=== PATIENT | male | born 1990 | race Caucasian/White ===

== ENCOUNTER → 2017-01-19 | Outpatient (REF) | payer OTHER | LOC: M LAB REF 09:14 | PROVIDERS: ATTEND Physician Assistant Medical | DX: Z20.2 Contact with and (suspected) exposure to infections with a predominantly sexual mode of transmission (principal) ==

== ENCOUNTER 2017-02-07 17:39 | Emergency (ER) | payer BC, OTHER ==
[~2017-02-07] VITALS: Ht 177.8 cm; Wt 65.8 kg
[2017-02-07] MEDS ORDERED: ADDE15CA3 PO (17:57)
[2017-02-07 19:24] LABS: BASO # 0.1 K/mm3 (0.0-0.2); BASO % 0.4 % (0.0-1.0); EOS # 0.1 K/mm3 (0.0-0.50); LARGE UNSTAINED CELL # 0.1 K/mm3 (0.0-0.4); LARGE UNSTAINED CELL % 0.7 % (0.0-4.0); LYMPH # 1.3 K/mm3 (1.5-6.5); LYMPH % 8.6 % (24.0-44.0); MEAN CORPUSCULAR HGB CONC 33.5 g/dl (32.0-36.5); MEAN CORPUSCULAR VOLUME 92.5 fl (80.0-96.0); MONO # 0.8 K/mm3 (0.0-0.8); MONO % 5.4 % (0.0-5.0); NEUTROPHILS # 11.7 K/mm3 (1.8-7.7); NEUTROPHILS % 83.8 % (36.0-66.0); PLATELET COUNT, AUTOMATED 247 k/mm3 (150-450); RED CELL DISTRIBUTION WIDTH 12.2 % (11.5-14.5); WHITE BLOOD COUNT 13.9 K/mm3 (4.0-10.0)
[2017-02-07 19:39] LABS: ERYTHROCYTE SEDIMENTATION RATE 3 mm/hr (0-15)
[2017-02-07 19:59] LABS: ALBUMIN 4.1 GM/DL (3.2-5.2); ALBUMIN/GLOBULIN RATIO 1.14 (1.00-1.93); ALKALINE PHOSPHATASE 86 U/L (45-117); ALT/SGPT 20 U/L (12-78); ANION GAP 5 MEQ/L (8-16); AST/SGOT 15 U/L (15-37); BILIRUBIN,DIRECT 0.2 MG/DL (0.0-0.2); BILIRUBIN,TOTAL 0.5 MG/DL (0.2-1.0); BLOOD UREA NITROGEN 12 MG/DL (7-18); CALCIUM LEVEL 9.1 MG/DL (8.5-10.1); CARBON DIOXIDE LEVEL 29 MEQ/L (21-32); CHLORIDE LEVEL 101 MEQ/L (98-107); CREATININE FOR GFR 0.99 MG/DL (0.70-1.30); GLOMERULAR FILTRATION RATE > 60.0 (>60); GLUCOSE, FASTING 137 MG/DL (70-105); POTASSIUM SERUM 3.8 MEQ/L (3.5-5.1); SODIUM LEVEL 135 MEQ/L (136-145); TOTAL PROTEIN 7.7 GM/DL (6.4-8.2)
[2017-02-07 20:30] VITALS: BP 140/87
[2017-02-10 00:15] LABS: Lyme Disease IgG/IgM Antibodie <0.91 ISR (0.00-0.90); Lyme Disease IgM Ab Quantitati <0.80 index (0.00-0.79)
== END 2017-02-07 20:54 | disposition home or self-care (01) ==
LOC: M ED 17:39
DX: D69.2 Other nonthrombocytopenic purpura (principal); L95.9 Vasculitis limited to the skin, unspecified; J45.909 Unspecified asthma, uncomplicated; F90.9 Attention-deficit hyperactivity disorder, unspecified type; Z79.899 Other long term (current) drug therapy

== ENCOUNTER 2017-02-13 08:35 | Inpatient (IN) | payer BC ==
[~2017-02-13] VITALS: Ht 182.9 cm; Wt 66.4 kg
[~2017-02-13 08:35] MED LIST: ADDE15CA3 PO
[2017-02-13] MEDS ORDERED: NS 1,000 ML IV SCH (09:30)
[2017-02-13 10:04] LABS: BASO % 0.2 % (0.0-1.0); EOS # 0.1 K/mm3 (0.0-0.50); EOS % 1.7 % (0.0-3.0); LARGE UNSTAINED CELL # 0.1 K/mm3 (0.0-0.4); LARGE UNSTAINED CELL % 1.2 % (0.0-4.0); LYMPH # 1.3 K/mm3 (1.5-6.5); MEAN CORPUSCULAR HEMOGLOBIN 31.8 pg (27.0-33.0); MEAN CORPUSCULAR HGB CONC 34.8 g/dl (32.0-36.5); MEAN CORPUSCULAR VOLUME 91.3 fl (80.0-96.0); MONO # 0.5 K/mm3 (0.0-0.8); MONO % 6.3 % (0.0-5.0); NEUTROPHILS % 75.6 % (36.0-66.0); PLATELET COUNT, AUTOMATED 226 k/mm3 (150-450); RED CELL DISTRIBUTION WIDTH 12.2 % (11.5-14.5)
--- NOTE | 2017-02-13 10:32 | REP ---
ABDOMEN, FLAT UPRIGHT PA CHEST, THREE VIEWS: HISTORY: Abdominal pain. Air is present in small and large intestine. There are no air fluid levels or dilated loops of intestine. There is no pneumoperitoneum. The lungs are clear. IMPRESSION: Nonspecific bowel gas pattern. Signed by Ramu Méndez MD 02/13/2017 10:37 A
--- NOTE | 2017-02-13 10:33 | REP ---
RIGHT WRIST, FOUR VIEWS: HISTORY: Pain. There is no acute fracture or dislocation. The joint spaces are normal in appearance. IMPRESSION: There is no acute fracture or dislocation. Signed by Ramu Méndez MD 02/13/2017 10:36 A
[2017-02-13 10:34] LABS: ERYTHROCYTE SEDIMENTATION RATE 8 mm/hr (0-15)
[2017-02-13 10:35] LABS: ALBUMIN 3.5 GM/DL (3.2-5.2); ALBUMIN/GLOBULIN RATIO 0.83 (1.00-1.93); ALKALINE PHOSPHATASE 58 U/L (45-117); ALT/SGPT 46 U/L (12-78); ANION GAP 6 MEQ/L (8-16); AST/SGOT 26 U/L (15-37); BILIRUBIN,DIRECT 0.2 MG/DL (0.0-0.2); BILIRUBIN,TOTAL 0.7 MG/DL (0.2-1.0); BLOOD UREA NITROGEN 3 MG/DL (7-18); CALCIUM LEVEL 8.8 MG/DL (8.5-10.1); CARBON DIOXIDE LEVEL 30 MEQ/L (21-32); CHLORIDE LEVEL 103 MEQ/L (98-107); CREATININE FOR GFR 0.83 MG/DL (0.70-1.30); GLOMERULAR FILTRATION RATE > 60.0 (>60); GLUCOSE, FASTING 100 MG/DL (70-105); POTASSIUM SERUM 3.8 MEQ/L (3.5-5.1); SODIUM LEVEL 139 MEQ/L (136-145); TOTAL PROTEIN 7.7 GM/DL (6.4-8.2)
[2017-02-13] MEDS ORDERED: GASTROGRAFIN SOLUTION 30ML PO ONE (11:05)
[2017-02-13] MEDS ORDERED: GASTROGRAFIN SOLUTION 30ML (Q9963) PO ONE (11:35)
[2017-02-13] MEDS ORDERED: ISOVUE-370 76% 100ML VIAL (Q9967) As Ordered ONE (12:14)
--- NOTE | 2017-02-13 13:32 | REP ---
CT abdomen and pelvis with IV contrast: With oral contrast. History: Left lower quadrant pain. Diarrhea. Vasculitis with purpura. CT contrast dose: 100 ml of Isovue [address] findings: Preliminary digital street worker radiographs are unremarkable. The lung bases are clear. There is no evidence of pleural effusion or upper abdominal ascites. The liver and the spleen are normal in size, homogeneous in texture. The gallbladder and pancreas are unremarkable. No adrenal lesion is seen on either side. The kidneys enhance symmetrically and are morphologically intact. Normal caliber aorta is seen. No evidence of arterial aneurysm or thrombosis. There are scattered multiple normal-sized small bowel mesenteric lymph nodes. No adenopathy seen. The descending and transverse segments of the duodenum are somewhat dilated filled with oral contrast. There is mural thickening surrounding the first portions of the duodenum and to a lesser extent there is mild dilation and mural thickening and fold thickening in the jejunal loops just beyond the ligament of Treitz. The more distal small bowel loops are normal in caliber and morphology. No significant obstruction is seen. The large bowel loops are unremarkable. Oral contrast is seen opacifying the right colon at the time of CT scanning. There is a tiny sliver of fluid in the pelvic reflections. Urinary bladder is intact. A normal appendix is seen over the iliac vessels. Bone window settings demonstrate bilateral L5 spondylolysis without significant spondylolisthesis. Some Schmorl's nodes are noted L4 and L3 due to early degenerative disc changes. No bony destructive lesion. No abdominal wall defect seen. Impression: 1. Mild dilation of the duodenum and one or two loops of proximal jejunum with mural thickening. No evidence of significant obstruction or obstructive lesion. 2. Multiple normal-sized small bowel mesenteric lymph nodes. 3. Bilateral L5 spondylolysis without spondylolisthesis. Otherwise negative. Signed by Chaitanya Gong MD 02/13/2017 03:50 P
[2017-02-13] MEDS ORDERED: MORPHINE 4 MG/ML 1ML SYRINGE IV ONE (14:45)
[2017-02-13] MEDS ORDERED: ONDANSETRON 4MG/2ML VIAL (J2405) IV ONE (14:45)
[2017-02-13] MEDS ORDERED: ACET50TAOT PO (18:37)
[2017-02-13] MEDS ORDERED: ALEV220T26 PO (18:37)
[2017-02-13] MEDS: NS 1,000 ML IV SCH (19:11)
[2017-02-13] MEDS ORDERED: BISACODYL 10 MG SUPP PR PRN (19:15)
[2017-02-13] MEDS: MORPHINE 2 MG/ML 1ML SYRINGE IV PRN (19:26)
[2017-02-13 20:32] VITALS: BP 144/94
[2017-02-13] MEDS: KETOROLAC 30 MG/ML VIAL (J1885) IV PRN (20:49)
[2017-02-13] MEDS: ACETAMINOPHEN TAB 650MG DOSE (2X325MG) PO PRN (20:49)
[2017-02-13] MEDS: PANTOPRAZOLE 40MG INJ (PROTONIX) (C9113) IV SCH (20:50)
[2017-02-13 20:52] LABS: INR 1.05
--- NOTE | 2017-02-13 22:01 | HPE ---
DATE OF ADMISSION: 02/13/2017 PRIMARY CARE PROVIDER: Nicanor Welsh MD CHIEF COMPLAINT: Purpuric rash, fatigue. HISTORY OF PRESENT ILLNESS: Mr. Greene is a 26-year-old male with no past medical history, who presented to the emergency room (ER) due to experiencing extensive purpuric rash in his lower extremities as well as mild area of upper extremities bilaterally. Patient expressed that his symptoms started on 02/07/2017. When he woke up in the morning, he noticed that he had swelling of his ankles bilaterally as well as right knee, right wrist, and right elbow. Patient went to work and when he came back, his noticed that he had purpuric rash in his lower extremities. Patient came to the ER. At the ER, it was noticed that patient had leukocytosis (white blood cells 16.9). Also, they ordered serology for Lyme disease IgM and IgG which was less than 0.91 and Lyme IgM quantitative was less than 0.8. Patient was discharged home with diagnosis of Henoch-Schonlein purpura (HSP) and was asked to followup with the primary care physician. The next day he noticed that the swelling of his ankles decreased however his left wrist and elbow start swelling. Patient had lab work for trichomoniasis and gonorrhea which were negative on 2016. On Monday, patient was seen by his primary care physician who ordered some tests which were scheduled for Monday, however due to increasing of his symptoms, including his rash, patient came to the ER. Patient also expressed that he developed diarrhea yesterday. He denies hematochezia however he had bowel movement every hour. Patient also denies hematuria or pain with urination. Patient expressed that he has noticed that purpuric rash has increased from his lower extremities up to his buttocks as well as posterior elbows bilaterally. However, patient denies noticing rashes on his chest and back. Also, patient expressed that several days before this symptoms start, patient noticed mild conjunctivitis on his left eye. Patient continue to have swelling of his joints especially wrists, elbows, ankles and knees randomly. ALLERGIES: No known allergies. PAST MEDICAL HISTORY: ADD PAST SURGICAL HISTORY: None. HOME MEDICATION: Acetaminophen 500 mg by mouth when necessary pain Adderall Xr 15 mg 1 By mouth twice a day Aleve 220 mg by mouth when necessary pain SOCIAL HISTORY: Patient lives with his and his daughter. 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 Patient denies illicit drug use. Patient smokes electronic (E) cigarettes and he expressed that he smokes a lot for the past 2 years. Patient has not traveled outside of the [place]. Patient has one dog. FAMILY HISTORY: Patient has one sister who is healthy. Patient's father had a stent at age 57, he is a smoker, and also drinks alcoholic beverages. Patient's mother is healthy. REVIEW OF SYSTEMS: GENERAL: Patient denies chills, night sweats. Patient also denies fever, however patient felt warm. Patient denies weight loss or weight gain. HEENT: Patient denies acute vision or hearing changes. Patient denies lightheadedness or problem with chewing food, however patient has lost his appetite. NECK: Patient denies lumps, bumps, or decreased range of motion of his neck. HEART: Patient denies palpitations, racing or skipping heartbeat or chest pain. ABDOMEN: Patient denies abdominal pain, nausea, or vomiting, however patient has diarrhea for the past 2 days. Patient denies hematochezia or melena. NEUROLOGIC: Patient denies history of transient ischemic attack (TIA), seizure or seizure-type activities. PHYSICAL EXAMINATION: VITAL SIGNS: Temperature 98.1, pulse 92, respiratory rate 18, blood pressure 136/88, pulse oximetry 100%, oxygen delivery method room air. GENERAL APPEARANCE: Patient was lying in bed, in no acute distress. Patient was awake, alert, and oriented to time, place, and person. HEENT: Normocephalic, atraumatic. Pupils are equal and reactive to light. Oral mucous is moist. NECK: Soft, supple. No lymphadenopathy. No thyromegaly. No jugular venous distention (JVD). HEART: Regular rate and rhythm, normal S1, S2. ABDOMEN: Soft, nontender. Positive bowel sounds in all quadrants. LUNGS: Clear breath sounds bilaterally, good air movement. EXTREMITIES: No lower extremity edema. +2 pulses in both lower extremities. Patient has edema in his left wrist as well as swelling of the finger. Patient has difficulty closing his hand and his left fingers to make a fist. However, patient has normal sensation in both upper and lower extremities. NEUROLOGIC: Cranial nerves II-XII were intact. No focal deficiencies. SKIN: Patient has purpuric rash in lower extremities bilaterally and his buttocks as well as posterior elbow bilaterally. The rashes are not tender to palpation and nonblanching. No tenderness was appreciated with palpation of the rash area. LABORATORY DATA: White blood cells 8, red blood cells 4.71, hemoglobin 15, hematocrit 43.1, MCV 91.3, MCH 31.8, MCHC 34.8, RDW 12.2, platelet count 226, neutrophil percentage 75.6, lymphocyte percentage 15, monocyte percentage 6.3, eosinophil percentage 1.7, basophil percentage 0.2, leukocyte percentage 1.2. PT 13.8, INR 1.05. Sodium 139, potassium 3.8, chloride 103, carbon dioxide 30, anion gap 6, BUN 3, creatinine 0.83, glomerular filtration rate more than 60, fasting glucose 100, lactic acid 1.3, calcium 8.8, total bilirubin 0.7, direct bilirubin 0.2, AST 26, ALT 46, alkaline phosphatase 58, C-reactive protein 2.0, total protein 7.7, albumin 3.5. Urine color straw, urine appearance clear, urine pH 7, urine specific gravity 1.001, urine protein negative, urine glucose negative, urine ketones negative, urine nitrite negative, urine urobilinogen 0.2, urine bilirubin negative, urine leukocyte esterase negative, urine white blood cells 0, urine red blood cells 1, urine hyaline casts 0, urine bacteria 1+, urine squamous epithelial cells 0. KEL screen pending. Total component pending. Hepatitis A IgM antibody pending. Hepatitis B surface (S) antigen pending. Hepatitis B core IgM antibody pending. Hepatitis C antibody index pending. Gonorrhea DNA pending. Trichomoniasis DNA pending. Blood culture is pending. Gastrointestinal (GI) panel was negative. IMAGING STUDIES: CT abdomen and pelvis with IV oral contrast which indicated mild dilation of the duodenum and one or two loops of proximal jejunum with mural thickening. No evidence of significant obstruction or obstructive lesions. Multiple normal sized small bowel mesenteric lymph nodes bilaterally. L5 spondylosis without spondylolisthesis. Otherwise, normal study. Abdomen flat/upright posteroanterior (PA) chest: Nonspecific bowel gas pattern. Right wrist, complete, which shows no acute fracture or dislocation. ASSESSMENT AND PLAN: 1. Purpuric rash with swelling of joints. This could be Henoch-Schonlein purpura (HSP) however due to other possibilities of infection versus inflammatory we have ordered lab works including: antinuclear antibody (KEL) as well as total component, hepatitis panel and repeated trichomoniasis and gonorrhea, however result is pending at this time. Also, we have gotten consent for ordering HIV which has been ordered and the result is pending. Gastrointestinal (GI) panel was negative. Blood culture is pending. At this point, we have not started on antibiotic treatment or prednisone due to unknown etiology. We may require to consult Dr. Blanchard, infectious disease. 2. Deep venous thrombosis (DVT) prophylaxis. At this point, we have not started patient on anticoagulation due to skin presentation. Also, due to lower extremity purpuric rash we have not started thromboembolism deterrents (TEDs) and sequentials. Patient is young and able to ambulate. 3. Joint pain/abdominal pain. His diarrhea has decreased. Imaging was negative for new pathology and gastrointestinal (GI) panel was negative. Patient is on morphine 2 mg IV every 2 hours as needed for severe pain as well as ketorolac 15 mg IV every 8 hours as needed for severe pain. My preceptor for this patient encounter was Dr. Francisca Cordero. The preceptor was physically present in the building during the encounter and was fully available. As needed, all aspects of the patient interview, examination, medical decision making process, and medical care plan development were reviewed and approved by the preceptor. The preceptor is aware and concurs with the plan as stated in the body of this note and will attest to such by his/her cosignature. SENIA
[2017-02-13 23:09] VITALS: BP 124/79
[2017-02-14] MEDS: ONDANSETRON 4MG/2ML VIAL (J2405) IV PRN ×3 (02:17→19:54)
[2017-02-14] MEDS: MORPHINE 2 MG/ML 1ML SYRINGE IV PRN ×3 (02:40→19:54)
[2017-02-14] MEDS: KETOROLAC 30 MG/ML VIAL (J1885) IV PRN ×3 (05:49→23:50)
[2017-02-14 07:55] LABS: MEAN CORPUSCULAR HEMOGLOBIN 32.3 pg (27.0-33.0); MEAN CORPUSCULAR HGB CONC 35.1 g/dl (32.0-36.5); MEAN CORPUSCULAR VOLUME 92.1 fl (80.0-96.0); WHITE BLOOD COUNT 5.9 K/mm3 (4.0-10.0)
[2017-02-14 08:00] VITALS: BP 130/82
[2017-02-14] MEDS: NS 1,000 ML IV SCH ×2 (08:09→21:00)
[2017-02-14 08:20] LABS: ANION GAP 5 MEQ/L (8-16); BLOOD UREA NITROGEN 4 MG/DL (7-18); CALCIUM LEVEL 8.5 MG/DL (8.5-10.1); CARBON DIOXIDE LEVEL 30 MEQ/L (21-32); CHLORIDE LEVEL 107 MEQ/L (98-107); CREATININE FOR GFR 0.81 MG/DL (0.70-1.30); GLOMERULAR FILTRATION RATE > 60.0 (>60); GLUCOSE, FASTING 107 MG/DL (70-105); POTASSIUM SERUM 3.7 MEQ/L (3.5-5.1); SODIUM LEVEL 142 MEQ/L (136-145)
[2017-02-14] MEDS: ACETAMINOPHEN TAB 650MG DOSE (2X325MG) PO PRN ×2 (10:19→21:16)
--- NOTE | 2017-02-14 11:19 | IPNPDOC ---
Subjective Date Seen The patient was seen on 02/14/17. Subjective Chief Complaint/HPI The patient is a 26-year-old male admitted with a reason for visit of Pain In Joints; Purpura. VS, I&O, 24H, Fishbone Vital Signs/I&O Vital Signs Date Time Temp Pulse Resp B/P (MAP) Pulse Ox O2 Delivery O2 Flow Rate FiO2 02/14/17 08:00 98.8 94 20 130/82 (98) 100 Room Air I&O- Last 24 Hours up to 6 AM 02/14/17 06:00 Intake Total 1200 ml Output Total 850 ml Balance 350 ml Laboratory Data 24H LABS Laboratory Tests 2 02/13/17 20:07: Prothrombin Time 13.8, Prothromb Time International Ratio 1.05 02/14/17 07:28: Anion Gap 5L, Glomerular Filtration Rate > 60.0, Blood Urea Nitrogen 4L, Creatinine 0.81, Sodium Level 142, Potassium Level 3.7, Chloride Level 107, Carbon Dioxide Level 30, Calcium Level 8.5 CBC/BMP Laboratory Tests 02/14/17 07:28 Red Blood Count 4.10 L, Mean Corpuscular Volume 92.1, Mean Corpuscular Hemoglobin 32.3, Mean Corpuscular Hemoglobin Concent 35.1, Red Cell Distribution Width 12.0, Calcium Level 8.5 Microbiology Microbiology 02/13/17 Blood Culture - Preliminary, Resulted No growth after 24 hours . All specim... 02/13/17 Blood Culture - Preliminary, Resulted No growth after 24 hours . All specim... 02/13/17 Gastrointestinal Tract Panel (PCR) - Final, Complete SUNNY KAPADIA DO Feb 14, 2017 11:19
--- NOTE | 2017-02-14 11:49 | IPNPDOC ---
Subjective Date Seen The patient was seen on 02/14/17. Subjective Chief Complaint/HPI The patient is a 26-year-old male admitted with a reason for visit of Pain In Joints; Purpura. General: Reports: Fatigue, Denies: Chills, Night Sweats Constitutional: Denies: Chills, Fever, Malaise Eyes: Denies: Vision change, Conjunctivae inflammation ENT: Denies: Head Aches Skin: Reports: Rash (generalized purpura,non-blanching mostly on LE and bottom) Pulmonary: Denies: Dyspnea, Cough Cardiovascular: Denies: Chest Pain, Palpitations, Orthopnea Gastrointestinal: Denies: Nausea, Vomiting Genitourinary: Denies: Dysuria Musculoskeletal: Reports: Joint Pain (b/l wrist, right knee, b/l ankle) Neurological: Denies: Weakness, Numbness Psych: Reports: Mood Normal Objective Physical Examination General Exam: Positive: Alert, Cooperative, No Acute Distress Eye Exam: Positive: Conjunctiva & lids normal, EOMI ENT Exam: Positive: Atraumatic, Mucous membr. moist/pink, Pharynx Normal Neck Exam: Positive: Supple Chest Exam: Positive: Clear to auscultation, Normal air movement, Negative: Rales, Rhonchi, Wheezing, Diminished Heart Exam: Positive: Rate Normal, Normal S1, Normal S2 Abdomen Exam: Positive: Normal bowel sounds, Soft, Negative: Tenderness, Hepatospenomegaly Extremity Exam: Positive: Normal pulses, Tenderness (mild abdominal tenderness , pain in left wrist ), Negative: Clubbing, Cyanosis, Edema Neuro Exam: Positive: Normal Gait Assessment /Plan Problems (1) Polyarthropathy Status: Acute Response to Treatment: Stable Problem Text: on exam, pt still complaining of sore left wrist and ankles will continue pain control w/ ketorolac have sent for multiple immunological markers, to include cryoglobulins, C3,C4, anti-CCP, RF, DS-DNA, ANCA, KEL, thinking most likely 2/2 HSP however definitive dx. must be obtained through skin bx w/ superficial dermal vessel inclusion. - will speak to front desk attendant surgeon about accomplishing this Otherwise, wide differential still includes: polyarteritis nodosa, granulomatosis with polyangitis, cryoglobulinemia, RF vasculitis, HSP, SLE vasculitis, Lyme diseas Hep B,C, HIV pending, chlamydia and gonorrhea neg First set of blood cx neg., suspect less likely for infectious etiology GI panel neg. will await results of aforementioned tests (2) Vasculitis Status: Acute Response to Treatment: Stable Problem Text: please see above (3) Pain in joints Status: Acute Response to Treatment: Stable Problem Text: pain control w/ketorolac please see above for further plan (4) Purpura Status: Acute Response to Treatment: Stable Problem Text: please see above Plan/VTE VTE Prophylaxis Ordered?: Yes VS, I&O, 24H, Fishbone Vital Signs/I&O Vital Signs Date Time Temp Pulse Resp B/P (MAP) Pulse Ox O2 Delivery O2 Flow Rate FiO2 02/14/17 11:34 16 02/14/17 08:00 98.8 94 130/82 (98) 100 Room Air I&O- Last 24 Hours up to 6 AM 02/14/17 06:00 Intake Total 1200 ml Output Total 850 ml Balance 350 ml Laboratory Data 24H LABS Laboratory Tests 2 02/13/17 20:07: Prothrombin Time 13.8, Prothromb Time International Ratio 1.05 02/14/17 07:28: Anion Gap 5L, Glomerular Filtration Rate > 60.0, Blood Urea Nitrogen 4L, Creatinine 0.81, Sodium Level 142, Potassium Level 3.7, Chloride Level 107, Carbon Dioxide Level 30, Calcium Level 8.5 CBC/BMP Laboratory Tests 02/14/17 07:28 Red Blood Count 4.10 L, Mean Corpuscular Volume 92.1, Mean Corpuscular Hemoglobin 32.3, Mean Corpuscular Hemoglobin Concent 35.1, Red Cell Distribution Width 12.0, Calcium Level 8.5 Microbiology Microbiology 02/13/17 Blood Culture - Preliminary, Resulted No growth after 24 hours . All specim... 02/13/17 Blood Culture - Preliminary, Resulted No growth after 24 hours . All specim... 02/13/17 Gastrointestinal Tract Panel (PCR) - Final, Complete GME ATTESTATION GME ATTESTATION My preceptor for this patient encounter was physically present in the building during the encounter and was fully available. As needed, all aspects of the patient interview, examination, medical decision making process, and medical care plan development were reviewed and approved by the preceptor. Preceptor is aware and concurs with the plan as stated in the body of this note and will attest to such by his/her cosignature. SUNNY KAPADIA DO Feb 14, 2017 11:48
[2017-02-14 15:02] LABS: COMPLEMENT C3 121 MG/DL (90-180); COMPLEMENT C4 22.6 MG/DL (10-40)
[2017-02-14 16:00] VITALS: BP 136/75
[2017-02-14] MEDS ORDERED: LIDOCAINE W/EPINEPHRINE 1% 20ML VIAL SC SCH (16:45)
[2017-02-14] MEDS ORDERED: NEOSPORIN TOP OINT 15GM TOP ONE (17:00)
[2017-02-14] MEDS: PANTOPRAZOLE 40MG INJ (PROTONIX) (C9113) IV SCH (19:54)
[2017-02-14 20:00] VITALS: BP 128/84
[2017-02-15] VITALS: BP 136/82
[2017-02-15 00:07] LABS: COMPLEMENT TOTAL (CH50) 60 U/mL (42-60)
[2017-02-15] MEDS: ONDANSETRON 4MG/2ML VIAL (J2405) IV PRN ×2 (06:57→17:24)
[2017-02-15] MEDS: MORPHINE 2 MG/ML 1ML SYRINGE IV PRN (06:57)
[2017-02-15 07:19] LABS: MEAN CORPUSCULAR HEMOGLOBIN 31.3 pg (27.0-33.0); MEAN CORPUSCULAR HGB CONC 34.3 g/dl (32.0-36.5); MEAN CORPUSCULAR VOLUME 91.3 fl (80.0-96.0); RED CELL DISTRIBUTION WIDTH 12.1 % (11.5-14.5); WHITE BLOOD COUNT 6.9 K/mm3 (4.0-10.0)
[2017-02-15 07:33] LABS: ANION GAP 6 MEQ/L (8-16); BLOOD UREA NITROGEN 5 MG/DL (7-18); CALCIUM LEVEL 8.7 MG/DL (8.5-10.1); CARBON DIOXIDE LEVEL 27 MEQ/L (21-32); CHLORIDE LEVEL 106 MEQ/L (98-107); CREATININE FOR GFR 0.67 MG/DL (0.70-1.30); GLOMERULAR FILTRATION RATE > 60.0 (>60); GLUCOSE, FASTING 105 MG/DL (70-105); POTASSIUM SERUM 3.6 MEQ/L (3.5-5.1); SODIUM LEVEL 139 MEQ/L (136-145)
[2017-02-15 08:00] VITALS: BP 132/92
[2017-02-15] MEDS: NS 1,000 ML IV SCH (08:45)
--- NOTE | 2017-02-15 09:14 | IPNPDOC ---
Subjective Date Seen The patient was seen on 02/15/17. Subjective Chief Complaint/HPI The patient is a 26-year-old male admitted with a reason for visit of Pain In Joints; Purpura. General: Denies: Chills, Night Sweats Constitutional: Reports: Malaise, Denies: Chills, Fever, Night Sweats Eyes: Denies: Pain, Vision change, Conjunctivae inflammation ENT: Denies: Head Aches Skin: Reports: Rash (generalized purpuric, non blanchable), Denies: Lesions, Jaundice Pulmonary: Denies: Dyspnea, Cough Cardiovascular: Denies: Chest Pain, Palpitations Gastrointestinal: Reports: Nausea, Abdominal Pain (genealized, seems worse from one day prior), Diarrhea, Denies: Vomiting, Constipation Genitourinary: Denies: Dysuria Musculoskeletal: Denies: Neck Pain Neurological: Denies: Weakness Psych: Reports: Mood Normal Objective Physical Examination General Exam: Positive: Alert, Cooperative, No Acute Distress Eye Exam: Positive: Conjunctiva & lids normal, EOMI ENT Exam: Positive: Atraumatic, Mucous membr. moist/pink, Pharynx Normal Neck Exam: Positive: Supple Chest Exam: Positive: Clear to auscultation, Normal air movement, Negative: Rales, Rhonchi, Wheezing, Diminished Heart Exam: Positive: Rate Normal, Normal S1, Normal S2 Abdomen Exam: Positive: Normal bowel sounds, Soft, Tenderness (generalized), Negative: Hepatospenomegaly Extremity Exam: Positive: Normal pulses, Tenderness (mild abdominal tenderness) , Negative: Clubbing, Cyanosis, Edema Neuro Exam: Positive: Normal Gait Assessment /Plan Assessment Pt seemed in more abdominal pain today, and also more fatigued. Problems (1) Polyarthropathy Status: Acute Response to Treatment: Stable Problem Text: on exam, pt still complaining of some residual soreness in left wrist he is s/p punch bx. one day ago for further evaluation for HSP will continue pain control w/ ketorolac have sent for multiple immunological markers, to include cryoglobulins, C3,C4, anti-CCP, RF, DS-DNA, ANCA, KEL, thinking most likely 2/2 HSP however definitive dx. must be obtained through skin bx w/ superficial dermal vessel inclusion. - will speak to regional medical director surgeon about accomplishing this Otherwise, wide differential still includes: polyarteritis nodosa, granulomatosis with polyangitis, cryoglobulinemia, RF vasculitis, HSP, SLE vasculitis, Lyme diseas Hep B,C, HIV pending, chlamydia and gonorrhea neg First set of blood cx neg., suspect less likely for infectious etiology GI panel neg. will await initiation of steroids until HSP results from bx. are back, standard of care for HSP is symptomatic tx., as such we will manage his pain appropriately will await results of aforementioned tests (2) Purpura Status: Acute Response to Treatment: Stable Problem Text: please see above (3) Vasculitis Status: Acute Response to Treatment: Stable Problem Text: please see above (4) Pain in joints Status: Acute Response to Treatment: Stable Problem Text: pain control w/ketorolac please see above for further plan (5) Abdominal pain Status: Acute Response to Treatment: Stable Problem Text: Pt. still complains of diffuse, achy pain. Had episode of loose stool over night with no blood or mucus. CT ab/pelvis 02-13-17 shows: Impression: 1. Mild dilation of the duodenum and one or two loops of proximal jejunum with mural thickening. No evidence of significant obstruction or obstructive lesion. 2. Multiple normal-sized small bowel mesenteric lymph nodes. 3. Bilateral L5 spondylolysis without spondylolisthesis. Otherwise negative. Will continue to treat pain, also will put on liquid diet GI panel neg. for infectious etiology Plan/VTE VTE Prophylaxis Ordered?: Yes VS, I&O, 24H, Fishbone Vital Signs/I&O Vital Signs Date Time Temp Pulse Resp B/P (MAP) Pulse Ox O2 Delivery O2 Flow Rate FiO2 02/15/17 07:07 16 02/15/17 00:00 99.3 80 136/82 (100) 98 Room Air I&O- Last 24 Hours up to 6 AM 02/15/17 06:00 Intake Total 4140 ml Output Total 4650 ml Balance -510 ml Laboratory Data 24H LABS Laboratory Tests 2 02/14/17 14:15: Serum Cryoglobulins NEGATIVE, Complement C3 121, Complement C4 22.6 02/15/17 06:56: Anion Gap 6L, Glomerular Filtration Rate > 60.0, Blood Urea Nitrogen 5L, Creatinine 0.67L, Sodium Level 139, Potassium Level 3.6, Chloride Level 106, Carbon Dioxide Level 27, Calcium Level 8.7 CBC/BMP Laboratory Tests 02/15/17 06:56 Red Blood Count 4.04 L, Mean Corpuscular Volume 91.3, Mean Corpuscular Hemoglobin 31.3, Mean Corpuscular Hemoglobin Concent 34.3, Red Cell Distribution Width 12.1, Calcium Level 8.7 Microbiology Microbiology 02/13/17 Blood Culture - Preliminary, Resulted No growth after 24 hours . All specim... 02/13/17 Blood Culture - Preliminary, Resulted No growth after 24 hours . All specim... 02/13/17 Gastrointestinal Tract Panel (PCR) - Final, Complete GME ATTESTATION GME ATTESTATION My preceptor for this patient encounter was physically present in the building during the encounter and was fully available. As needed, all aspects of the patient interview, examination, medical decision making process, and medical care plan development were reviewed and approved by the preceptor. Preceptor is aware and concurs with the plan as stated in the body of this note and will attest to such by his/her cosignature. SUNNY KAPADIA DO Feb 15, 2017 09:14
[2017-02-15] MEDS: ACETAMINOPHEN TAB 650MG DOSE (2X325MG) PO PRN (10:30)
[2017-02-15] MEDS: KETOROLAC 30 MG/ML VIAL (J1885) IV PRN ×2 (10:48→18:45)
[2017-02-15 16:00] VITALS: BP 132/77
--- NOTE | 2017-02-15 16:30 | DS.PDOC ---
Discharge Summary General Date of Admission Feb 13, 2017 at 19:11 Date of Discharge 02-15-17 Discharge Summary PROCEDURES PERFORMED DURING STAY: 3 mm punch biopsy right gluteal fold, x2 ADMITTING DIAGNOSES: 1. Purpuric rash with swelling of joints 2. Joint pain 3. Abdominal pain and diarrhea DISCHARGE DIAGNOSES: 1.Abdominal pain 2. Diarrhea 3. Diffuse, genealized purpuric rash COMPLICATIONS/CHIEF COMPLAINT: Pain In Joints; Purpura. HISTORY OF PRESENT ILLNESS: 26-year-old male with no past medical history presented to the emergency room (ER) due to experiencing extensive purpuric rash in his lower extremities as well as mild area of upper extremities bilaterally, associated with joint pain and diarrhea with abdominal pain. HOSPITAL COURSE: During the course of the stay, the patients abdominal pain was attempted to be controlled with ketorolac and morphine, his GI panel was neagtive for any infectious etiology. The pt. underwent punch biopsy of his right gluteal fold for two skin samples for diagnosis of HSP. Serology was sent for have sent for multiple immunological markers which included cryoglobulins, C3,C4, anti-CCP, RF, DS-DNA , ANCA, KEL. It was held that pt most likely was presenting with HSP however definitive dx.had to be obtained through skin bx w/ superficial dermal vessel inclusion, on day of transfer/d/c the pathology results were still pending. Ddx being investigated included polyarteritis nodosa, granulomatosis with polyangitis, cryoglobulinemia, RF vasculitis, HSP, SLE vasculitis, Lyme disease. Of note, Hep B,C were negative & HIV was pending, chlamydia and gonorrhea were also negative, First set of blood cultures were also negative. DISCHARGE MEDICATIONS: Please see below. ALLERGIES: Please see below. PHYSICAL EXAMINATION ON DISCHARGE: VITAL SIGNS: Please see below. GENERAL: On day of transfer, pt was seen and examined, seemed very tired and was in a lot of abdominal pain, complained of continued loose stool w/no blood or mucus . HEENT: EOMI, neck supple, nares patent b/l, trachea midline, moist mucus membranes CARDIOVASCULAR EXAMINATION: NSR, no murmurs or gallops appreciated, normal S1 and S2. RESPIRATORY EXAMINATION: CTA b/l, no wheezing, rhonchi or rales appreciated, good air expansinon b/l ABDOMINAL EXAMINATION: generalized tenderness, non-distended, nabsx4, no rebound ridgity or guarding appreciated, no organomegaly EXTREMITIES: no edema or cyanosis appreciated SKIN: multiple, whole body genealized non blanching purpura NEUROLOGICAL EXAMINATION: no focal deficits PSYCHIATRIC EXAMINATION: normal affect and mood LABORATORY DATA: Please see below. IMAGING: Wrist x-ray 02-13-17 IMPRESSION: There is no acute fracture or dislocation. Ab x-ray 02-13-17 IMPRESSION: Nonspecific bowel gas pattern. Ab/pelvis CT 02-13-17 Impression: 1. Mild dilation of the duodenum and one or two loops of proximal jejunum with mural thickening. No evidence of significant obstruction or obstructive lesion. 2. Multiple normal-sized small bowel mesenteric lymph nodes. 3. Bilateral L5 spondylolysis without spondylolisthesis. Otherwise negative. PROGNOSIS: Stable ACTIVITY: As tolerated DIET: Soft due to continued diarrhea DISCHARGE PLAN: Transfer to [facility] for higher level of care and workup DISPOSITION: Stable to transfer to [facility] INSTRUCTIONS: ITEMS TO FOLLOWUP ON ON OUTPATIENT: 1.Transfer to higher care facility DISCHARGE CONDITION: Stable TIME SPENT ON DISCHARGE: Greater than 20 minutes. Vital Signs/I&Os Vital Signs Date Time Temp Pulse Resp B/P (MAP) Pulse Ox O2 Delivery O2 Flow Rate FiO2 02/15/17 10:20 98.9 02/15/17 08:00 72 18 132/92 (105) 99 Room Air I&O- Last 24 Hours up to 6 AM 02/15/17 06:00 Intake Total 4140 ml Output Total 4650 ml Balance -510 ml Laboratory Data Labs 24H Laboratory Tests 2 02/15/17 06:56: Anion Gap 6L, Glomerular Filtration Rate > 60.0, Blood Urea Nitrogen 5L, Creatinine 0.67L, Sodium Level 139, Potassium Level 3.6, Chloride Level 106, Carbon Dioxide Level 27, Calcium Level 8.7 CBC/BMP Laboratory Tests 02/15/17 06:56 Red Blood Count 4.04 L, Mean Corpuscular Volume 91.3, Mean Corpuscular Hemoglobin 31.3, Mean Corpuscular Hemoglobin Concent 34.3, Red Cell Distribution Width 12.1, Calcium Level 8.7 Microbiology Microbiology 02/13/17 Blood Culture - Preliminary, Resulted No Growth after 48 hours. All Specime... 02/13/17 Blood Culture - Preliminary, Resulted No Growth after 48 hours. All Specime... 02/13/17 Gastrointestinal Tract Panel (PCR) - Final, Complete Discharge Medications Scheduled Amphetamine/Dextroamphetamine (Adderall Xr 15 mg) 1 Cap Cap, 1 CAP PO BID, ( Reported) Scheduled PRN Acetaminophen (Acetaminophen) 500 Mg Tab, 500 MG PO for PAIN, (Reported) Naproxen Sodium (Aleve) 220 Mg Tab, 220 MG PO for PAIN, (Reported) Allergies Coded Allergies: No Known Allergies (Unverified , 02/07/17) GME ATTESTATION GME ATTESTATION My preceptor for this patient encounter was physically present in the building during the encounter and was fully available. As needed, all aspects of the patient interview, examination, medical decision making process, and medical care plan development were reviewed and approved by the preceptor. Preceptor is aware and concurs with the plan as stated in the body of this note and will attest to such by his/her cosignature. SUNNY KAPADIA DO Feb 15, 2017 16:30
[2017-02-15] MEDS ORDERED: PROT40IN4 IV (16:46)
[2017-02-15] MEDS ORDERED: ONDA4VLL IV (16:46)
[2017-02-15] MEDS ORDERED: KETO30VL IV (16:46)
[2017-02-15] MEDS ORDERED: MORP4SYR IV (16:46)
[2017-02-15] MEDS: MORPHINE 4 MG/ML 1ML SYRINGE IV PRN (17:25)
[2017-02-15 20:00] VITALS: BP 128/70
[2017-02-15] MEDS: PANTOPRAZOLE 40MG INJ (PROTONIX) (C9113) IV SCH (20:15)
[2017-02-16] VITALS: BP 123/84
[2017-02-16 00:07] LABS: Lyme Disease IgG/IgM Antibodie <0.91 ISR (0.00-0.90); Lyme Disease IgM Ab Quantitati <0.80 index (0.00-0.79)
[2017-02-16] MEDS: ONDANSETRON 4MG/2ML VIAL (J2405) IV PRN ×2 (00:10→20:24)
[2017-02-16] MEDS: MORPHINE 4 MG/ML 1ML SYRINGE IV PRN ×2 (00:10→20:25)
[2017-02-16] MEDS: NS 1,000 ML IV SCH ×3 (00:11→21:52)
[2017-02-16] MEDS: KETOROLAC 30 MG/ML VIAL (J1885) IV PRN ×4 (03:02→21:52)
[2017-02-16 04:00] VITALS: BP 133/87
[2017-02-16 07:05] LABS: MEAN CORPUSCULAR HEMOGLOBIN 31.3 pg (27.0-33.0); MEAN CORPUSCULAR HGB CONC 34.8 g/dl (32.0-36.5); MEAN CORPUSCULAR VOLUME 89.8 fl (80.0-96.0); RED CELL DISTRIBUTION WIDTH 11.8 % (11.5-14.5); WHITE BLOOD COUNT 6.4 K/mm3 (4.0-10.0)
[2017-02-16 07:19] LABS: ANION GAP 4 MEQ/L (8-16); BLOOD UREA NITROGEN 4 MG/DL (7-18); CALCIUM LEVEL 8.4 MG/DL (8.5-10.1); CARBON DIOXIDE LEVEL 30 MEQ/L (21-32); CHLORIDE LEVEL 106 MEQ/L (98-107); CREATININE FOR GFR 0.76 MG/DL (0.70-1.30); GLOMERULAR FILTRATION RATE > 60.0 (>60); GLUCOSE, FASTING 106 MG/DL (70-105); SODIUM LEVEL 140 MEQ/L (136-145)
[2017-02-16 08:00] VITALS: BP 127/82
[2017-02-16] MEDS ORDERED: KETOROLAC 30 MG/ML VIAL (J1885) IV PRN (09:00)
[2017-02-16] MEDS: ACETAMINOPHEN TAB 650MG DOSE (2X325MG) PO PRN (09:24)
--- NOTE | 2017-02-16 09:34 | IPNPDOC ---
Subjective Date Seen The patient was seen on 02/16/17. Subjective Chief Complaint/HPI The patient is a 26-year-old male admitted with a reason for visit of Pain In Joints; Purpura. General: Reports: Fatigue, Denies: Chills, Night Sweats Constitutional: Reports: Malaise, Denies: Night Sweats Eyes: Denies: Vision change, Conjunctivae inflammation ENT: Denies: Head Aches Skin: Reports: Rash (purpuric generalized, unchanged from one day prior) Pulmonary: Denies: Dyspnea, Cough Cardiovascular: Denies: Chest Pain, Palpitations Gastrointestinal: Reports: Nausea, Abdominal Pain, Denies: Vomiting Genitourinary: Denies: Dysuria Neurological: Reports: Weakness Psych: Reports: Mood Normal Objective Physical Examination General Exam: Positive: Alert, Cooperative, Mild Distress (abdominal pain) Eye Exam: Positive: Conjunctiva & lids normal, EOMI ENT Exam: Positive: Atraumatic, Mucous membr. moist/pink, Pharynx Normal Neck Exam: Positive: Supple Chest Exam: Positive: Clear to auscultation, Normal air movement, Negative: Rales, Rhonchi, Wheezing, Diminished Heart Exam: Positive: Rate Normal, Normal S1, Normal S2 Abdomen Exam: Positive: Normal bowel sounds, Soft, Tenderness (generalized, about the same as one day prior, minimal improvement), Negative: Hepatospenomegaly Extremity Exam: Positive: Normal pulses, Tenderness (mild abdominal tenderness and left wrist achy), Negative: Clubbing, Cyanosis, Edema Neuro Exam: Positive: Normal Gait Assessment /Plan Problems (1) Polyarthropathy Status: Acute Response to Treatment: Stable Problem Text: on exam, pt still complaining soreness in left wrist he is s/p punch bx. two days for further evaluation for HSP will continue pain control morphine and ketorolac have sent for multiple immunological markers, to include cryoglobulins, C3,C4, anti-CCP, RF, DS-DNA, ANCA, KEL, thinking most likely 2/2 HSP however definitive dx. must be obtained through skin bx w/ superficial dermal vessel inclusion. - will speak to insurance verification clerk surgeon about accomplishing this Otherwise, wide differential still includes: polyarteritis nodosa, granulomatosis with polyangitis, cryoglobulinemia, RF vasculitis, HSP, SLE vasculitis, Lyme disease Hep B,C, HIV pending, chlamydia and gonorrhea neg, lyme neg, serological IgA levels normal-awaiting skin Bx results Second set of blood cx neg., suspect less likely for infectious etiology GI panel neg. will await initiation of steroids until HSP results from bx. are back, standard of care for HSP is symptomatic tx., as such we will manage his pain appropriately will await results of aforementioned tests Will away bed opening in [facility] for transfer to higher level of care (2) Purpura Status: Acute Response to Treatment: Stable Problem Text: please see above (3) Vasculitis Status: Acute Response to Treatment: Stable Problem Text: etiology not yet determined. (4) Pain in joints Status: Acute Response to Treatment: Stable Problem Text: pain control w/ketorolac and morphine please see above for further plan (5) Abdominal pain Status: Acute Response to Treatment: Stable Problem Text: Pt. still complains of diffuse, achy pain. CT ab/pelvis 02-13-17 shows: Impression: 1. Mild dilation of the duodenum and one or two loops of proximal jejunum with mural thickening. No evidence of significant obstruction or obstructive lesion. 2. Multiple normal-sized small bowel mesenteric lymph nodes. 3. Bilateral L5 spondylolysis without spondylolisthesis. Otherwise negative. Will continue to treat pain, also will put on liquid diet GI panel neg. for infectious etiology Plan/VTE VTE Prophylaxis Ordered?: Yes VS, I&O, 24H, Fishbone Vital Signs/I&O Vital Signs Date Time Temp Pulse Resp B/P (MAP) Pulse Ox O2 Delivery O2 Flow Rate FiO2 02/16/17 08:00 98.6 79 18 127/82 (97) 100 Room Air I&O- Last 24 Hours up to 6 AM 02/16/17 06:00 Intake Total 1980 ml Output Total 3000 ml Balance -1020 ml Laboratory Data 24H LABS Laboratory Tests 2 02/16/17 06:52: Anion Gap 4L, Glomerular Filtration Rate > 60.0, Blood Urea Nitrogen 4L, Creatinine 0.76, Sodium Level 140, Potassium Level 4.0, Chloride Level 106, Carbon Dioxide Level 30, Calcium Level 8.4L, C-Reactive Protein, Quantitative 1.09H CBC/BMP Laboratory Tests 02/16/17 06:52 Red Blood Count 3.95 L, Mean Corpuscular Volume 89.8, Mean Corpuscular Hemoglobin 31.3, Mean Corpuscular Hemoglobin Concent 34.8, Red Cell Distribution Width 11.8, Calcium Level 8.4 L Microbiology Microbiology 02/13/17 Blood Culture - Preliminary, Resulted No Growth after 48 hours. All Specime... 02/13/17 Blood Culture - Preliminary, Resulted No Growth after 48 hours. All Specime... 02/13/17 Gastrointestinal Tract Panel (PCR) - Final, Complete GME ATTESTATION GME ATTESTATION My preceptor for this patient encounter was physically present in the building during the encounter and was fully available. As needed, all aspects of the patient interview, examination, medical decision making process, and medical care plan development were reviewed and approved by the preceptor. Preceptor is aware and concurs with the plan as stated in the body of this note and will attest to such by his/her cosignature. SUNNY KAPADIA DO Feb 16, 2017 09:34 KARINE FERNÁNDEZ MD Feb 16, 2017 12:06
[2017-02-16 16:00] VITALS: BP 129/85
[2017-02-16 20:00] VITALS: BP 137/91
[2017-02-16] MEDS: PANTOPRAZOLE 40MG INJ (PROTONIX) (C9113) IV SCH (20:24)
[2017-02-17] VITALS: BP 114/65
[2017-02-17 04:00] VITALS: BP 135/87
[2017-02-17] MEDS: KETOROLAC 30 MG/ML VIAL (J1885) IV PRN ×4 (04:04→22:18)
[2017-02-17 07:33] LABS: MEAN CORPUSCULAR HEMOGLOBIN 30.5 pg (27.0-33.0); MEAN CORPUSCULAR HGB CONC 34.1 g/dl (32.0-36.5); MEAN CORPUSCULAR VOLUME 89.3 fl (80.0-96.0); RED CELL DISTRIBUTION WIDTH 12.2 % (11.5-14.5); WHITE BLOOD COUNT 5.6 K/mm3 (4.0-10.0)
[2017-02-17 07:58] LABS: ANION GAP 5 MEQ/L (8-16); BLOOD UREA NITROGEN 6 MG/DL (7-18); CALCIUM LEVEL 8.4 MG/DL (8.5-10.1); CARBON DIOXIDE LEVEL 30 MEQ/L (21-32); CHLORIDE LEVEL 105 MEQ/L (98-107); CREATININE FOR GFR 0.72 MG/DL (0.70-1.30); GLOMERULAR FILTRATION RATE > 60.0 (>60); GLUCOSE, FASTING 106 MG/DL (70-105); SODIUM LEVEL 140 MEQ/L (136-145)
[2017-02-17 07:59] LABS: REASON FOR REVIEW COMPREHENSIVE REVIEW
[2017-02-17 08:00] VITALS: BP 126/81
[2017-02-17] MEDS: ONDANSETRON 4MG/2ML VIAL (J2405) IV PRN (08:59)
[2017-02-17] MEDS: methylPREDNISolone INJ 125 MG/2 ML VIAL (J2930) IV SCH (08:59)
[2017-02-17] MEDS: MORPHINE 4 MG/ML 1ML SYRINGE IV PRN (09:01)
--- NOTE | 2017-02-17 10:25 | IPNPDOC ---
Subjective Date Seen The patient was seen on 02/17/17. Subjective Chief Complaint/HPI The patient is a 26-year-old male admitted with a reason for visit of Pain In Joints; Purpura. General: Reports: Fatigue, Malaise, Denies: Chills, Night Sweats Constitutional: Reports: Malaise, Denies: Chills, Fever, Weakness Eyes: Denies: Vision change, Conjunctivae inflammation ENT: Denies: Head Aches Skin: Reports: Rash (diffuse, genralized petchiae), Denies: Jaundice, Bruising Pulmonary: Denies: Dyspnea, Cough Cardiovascular: Denies: Chest Pain, Palpitations, Orthopnea, Paroxysmal Noc. Dyspnea, Edema, Lt Headedness Gastrointestinal: Reports: Nausea, Abdominal Pain, Denies: Vomiting, Diarrhea, Constipation, Melena, Hematochezia Genitourinary: Denies: Dysuria Musculoskeletal: Reports: Joint Pain (much improved) Neurological: Denies: Weakness, Numbness Psych: Reports: Mood Normal Objective Physical Examination General Exam: Positive: Alert, Cooperative, Mild Distress (abdominal pain, improved from one day prior) Eye Exam: Positive: Conjunctiva & lids normal, EOMI ENT Exam: Positive: Atraumatic, Mucous membr. moist/pink, Pharynx Normal Neck Exam: Positive: Supple Chest Exam: Positive: Clear to auscultation, Normal air movement, Negative: Rales, Rhonchi, Wheezing, Diminished Heart Exam: Positive: Rate Normal, Normal S1, Normal S2 Abdomen Exam: Positive: Normal bowel sounds, Soft, Tenderness (generalized, some improvement from one day prior ), Negative: Hepatospenomegaly Extremity Exam: Positive: Normal pulses, Tenderness (mild abdominal tenderness ), Negative: Clubbing, Cyanosis, Edema Neuro Exam: Positive: Normal Gait Assessment /Plan Problems (1) Polyarthropathy Status: Acute Response to Treatment: Stable Problem Text: on exam, pt still complaining some abdominal achy tenderness he is s/p punch bx. two days for further evaluation for HSP- spoke to pathology , specimen showed inflammation, neutrophils and areas of necrosis, has been sent to [facility] for further evaluation will continue pain control morphine and ketorolac Have begun steroids, prednisone to help with abdominal pain have sent for multiple immunological markers, to include cryoglobulins, C3,C4, anti-CCP, RF, DS-DNA, ANCA, KEL-awaiting results Otherwise, wide differential still includes: polyarteritis nodosa, granulomatosis with polyangitis, cryoglobulinemia, RF vasculitis, HSP, SLE vasculitis, Lyme disease Hep B,C, HIV pending, chlamydia and gonorrhea neg, lyme neg, serological IgA levels normal-awaiting skin Bx results, now sent to [facility] third set of blood cx neg., suspect less likely for infectious etiology GI panel neg. will await results of aforementioned tests Will away bed opening in [facility] for transfer to higher level of care and close follow up with Rheum Doctor (2) Purpura Status: Acute Response to Treatment: Stable Problem Text: please see above (3) Vasculitis Status: Acute Response to Treatment: Stable Problem Text: etiology not yet determined. (4) Pain in joints Status: Acute Response to Treatment: Stable Problem Text: have begun steroid tx. to help w/ abdominal pain, joint pain is much improved pain control w/ketorolac and morphine please see above for further plan (5) Abdominal pain Status: Acute Response to Treatment: Stable Problem Text: Pt. still complains of some achy abdominal pain, have begun steroids to help with abdominal pain CT ab/pelvis 02-13-17 shows: Impression: 1. Mild dilation of the duodenum and one or two loops of proximal jejunum with mural thickening. No evidence of significant obstruction or obstructive lesion. 2. Multiple normal-sized small bowel mesenteric lymph nodes. 3. Bilateral L5 spondylolysis without spondylolisthesis. Otherwise negative. Will continue to treat pain, also will put on liquid diet GI panel neg. for infectious etiology Plan/VTE VTE Prophylaxis Ordered?: Yes VS, I&O, 24H, [facility] Vital Signs/I&O Vital Signs Date Time Temp Pulse Resp B/P (MAP) Pulse Ox O2 Delivery O2 Flow Rate FiO2 02/17/17 09:01 20 02/17/17 08:00 99.2 71 126/81 (96) 100 Room Air I&O- Last 24 Hours up to 6 AM 02/17/17 06:00 Intake Total 2400 ml Output Total 2900 ml Balance -500 ml Laboratory Data 24H LABS Laboratory Tests 2 02/17/17 07:15: Differential Slide Review Report, Differential Pathologist's Review COMPREHENSIVE REVIEW, Peripheral Blood Smear Path Consult PERIPHERAL SMEAR, Anion Gap 5L, Glomerular Filtration Rate > 60.0, Blood Urea Nitrogen 6L, Creatinine 0.72, Sodium Level 140, Potassium Level 4.0, Chloride Level 105, Carbon Dioxide Level 30, Calcium Level 8.4L CBC/BMP Laboratory Tests 02/17/17 07:15 Red Blood Count 3.92 L, Mean Corpuscular Volume 89.3, Mean Corpuscular Hemoglobin 30.5, Mean Corpuscular Hemoglobin Concent 34.1, Red Cell Distribution Width 12.2, Calcium Level 8.4 L Microbiology Microbiology 02/13/17 Blood Culture - Preliminary, Resulted No Growth after 72 hours. All specime... 02/13/17 Blood Culture - Preliminary, Resulted No Growth after 72 hours. All specime... 02/13/17 Gastrointestinal Tract Panel (PCR) - Final, Complete GME ATTESTATION GME ATTESTATION My preceptor for this patient encounter was physically present in the building during the encounter and was fully available. As needed, all aspects of the patient interview, examination, medical decision making process, and medical care plan development were reviewed and approved by the preceptor. Preceptor is aware and concurs with the plan as stated in the body of this note and will attest to such by his/her cosignature. SUNNY KAPADIA DO Feb 17, 2017 10:25
[2017-02-17 12:00] VITALS: BP 130/80
[2017-02-17] MEDS: NS 1,000 ML IV SCH (12:06)
[2017-02-17 16:00] VITALS: BP 125/85
[2017-02-17 20:00] VITALS: BP 114/67
[2017-02-17] MEDS: PANTOPRAZOLE 40MG INJ (PROTONIX) (C9113) IV SCH (20:20)
[2017-02-18 04:00] VITALS: BP 116/68
[2017-02-18] MEDS: NS 1,000 ML IV SCH (04:30)
[2017-02-18] MEDS: KETOROLAC 30 MG/ML VIAL (J1885) IV PRN (05:19)
[2017-02-18 06:40] LABS: MEAN CORPUSCULAR HGB CONC 34.7 g/dl (32.0-36.5); MEAN CORPUSCULAR VOLUME 89.4 fl (80.0-96.0); RED CELL DISTRIBUTION WIDTH 12.3 % (11.5-14.5); WHITE BLOOD COUNT 6.9 K/mm3 (4.0-10.0)
[2017-02-18 06:53] LABS: ANION GAP 7 MEQ/L (8-16); BLOOD UREA NITROGEN 7 MG/DL (7-18); CALCIUM LEVEL 8.3 MG/DL (8.5-10.1); CARBON DIOXIDE LEVEL 26 MEQ/L (21-32); CHLORIDE LEVEL 107 MEQ/L (98-107); CREATININE FOR GFR 0.75 MG/DL (0.70-1.30); GLOMERULAR FILTRATION RATE > 60.0 (>60); GLUCOSE, FASTING 110 MG/DL (70-105); POTASSIUM SERUM 3.6 MEQ/L (3.5-5.1); SODIUM LEVEL 140 MEQ/L (136-145)
--- NOTE | 2017-02-18 07:47 | IPNPDOC ---
Subjective Date Seen The patient was seen on 02/18/17. Subjective Chief Complaint/HPI The patient is a 26-year-old male admitted with a reason for visit of Pain In Joints; Purpura. General: Denies: Chills Constitutional: Reports: Malaise, Denies: Chills, Fever, Night Sweats Eyes: Denies: Vision change, Conjunctivae inflammation ENT: Denies: Head Aches Skin: Reports: Rash (generalized petchiae), Denies: Lesions, Jaundice, Bruising, Itching Pulmonary: Denies: Dyspnea, Cough, Pleuritic Chest Pain Cardiovascular: Denies: Chest Pain, Palpitations Gastrointestinal: Reports: Abdominal Pain, Denies: Nausea, Vomiting, Diarrhea, Constipation, Melena Genitourinary: Denies: Dysuria Neurological: Denies: Weakness, Numbness, Incoordination Psych: Reports: Mood Normal Objective Physical Examination General Exam: Positive: Alert, Cooperative, Mild Distress (continued abdominal pain) Eye Exam: Positive: Conjunctiva & lids normal, EOMI ENT Exam: Positive: Atraumatic, Mucous membr. moist/pink, Pharynx Normal Neck Exam: Positive: Supple Chest Exam: Positive: Clear to auscultation, Normal air movement, Negative: Rales, Rhonchi, Wheezing, Diminished Heart Exam: Positive: Rate Normal, Normal S1, Normal S2 Abdomen Exam: Positive: Normal bowel sounds, Soft, Tenderness (generalized, some improvement from one day prior ), Negative: Hepatospenomegaly Extremity Exam: Positive: Normal pulses, Tenderness (mild abdominal tenderness ), Negative: Clubbing, Cyanosis, Edema Neuro Exam: Positive: Normal Gait Assessment /Plan Problems (1) Polyarthropathy Status: Acute Response to Treatment: Stable Problem Text: on exam, pt still complaining some abdominal achy tenderness he is s/p punch bx. three days for further evaluation for HSP- spoke to pathology, specimen showed inflammation, neutrophils and areas of necrosis, has been sent to [facility] for further evaluation will continue pain control morphine and ketorolac Have begun steroids, prednisone to help with abdominal pain have sent for multiple immunological markers, to include cryoglobulins, C3,C4, anti-CCP, RF, DS-DNA, ANCA, KEL-all neg wide differential did include: polyarteritis nodosa, granulomatosis with polyangitis, cryoglobulinemia, RF vasculitis, HSP, SLE vasculitis, Lyme disease , however multiple serologies neg. effectively ruling these out Hep B,C, HIV pending, chlamydia and gonorrhea neg, lyme neg, serological IgA levels normal-awaiting skin Bx results, now sent to [facility] third set of blood cx neg., suspect less likely for infectious etiology GI panel neg. will await results of aforementioned tests Will away bed opening in [facility] for transfer to higher level of care and close follow up with Rheum Doctor (2) Purpura Status: Acute Response to Treatment: Stable Problem Text: please see above (3) Vasculitis Status: Acute Response to Treatment: Stable Problem Text: etiology not yet determined. (4) Pain in joints Status: Acute Response to Treatment: Stable Problem Text: have begun steroid tx. to help w/ abdominal pain, joint pain is much improved pain control w/ketorolac and morphine please see above for further plan (5) Abdominal pain Status: Acute Response to Treatment: Stable Problem Text: Pt. still complains of some achy abdominal pain, have begun steroids to help with abdominal pain CT ab/pelvis 02-13-17 shows: Impression: 1. Mild dilation of the duodenum and one or two loops of proximal jejunum with mural thickening. No evidence of significant obstruction or obstructive lesion. 2. Multiple normal-sized small bowel mesenteric lymph nodes. 3. Bilateral L5 spondylolysis without spondylolisthesis. Otherwise negative. Will continue to treat pain, also will put on liquid diet GI panel neg. for infectious etiology Plan/VTE VTE Prophylaxis Ordered?: Yes VS, I&O, 24H, Fishbone Vital Signs/I&O Vital Signs Date Time Temp Pulse Resp B/P (MAP) Pulse Ox O2 Delivery O2 Flow Rate FiO2 02/18/17 04:00 99.4 81 16 116/68 (84) 98 Room Air I&O- Last 24 Hours up to 6 AM 02/18/17 06:00 Intake Total 2820 ml Output Total 3300 ml Balance -480 ml Laboratory Data 24H LABS Laboratory Tests 2 02/18/17 06:04: Anion Gap 7L, Glomerular Filtration Rate > 60.0, Blood Urea Nitrogen 7, Creatinine 0.75, Sodium Level 140, Potassium Level 3.6, Chloride Level 107, Carbon Dioxide Level 26, Calcium Level 8.3L CBC/BMP Laboratory Tests 02/18/17 06:04 Red Blood Count 3.78 L, Mean Corpuscular Volume 89.4, Mean Corpuscular Hemoglobin 31.0, Mean Corpuscular Hemoglobin Concent 34.7, Red Cell Distribution Width 12.3, Calcium Level 8.3 L Microbiology Microbiology 02/13/17 Blood Culture - Preliminary, Resulted No Growth after 72 hours. All specime... 02/13/17 Blood Culture - Preliminary, Resulted No Growth after 72 hours. All specime... 02/13/17 Gastrointestinal Tract Panel (PCR) - Final, Complete GME ATTESTATION GME ATTESTATION My preceptor for this patient encounter was physically present in the building during the encounter and was fully available. As needed, all aspects of the patient interview, examination, medical decision making process, and medical care plan development were reviewed and approved by the preceptor. Preceptor is aware and concurs with the plan as stated in the body of this note and will attest to such by his/her cosignature. SUNNY KAPADIA DO Feb 18, 2017 07:47
[2017-02-18 08:00] VITALS: BP 131/61
[2017-02-18] MEDS: methylPREDNISolone INJ 125 MG/2 ML VIAL (J2930) IV SCH (09:13)
[2017-02-18] MEDS ORDERED: ACETAMINOPHEN 500 MG TAB PO PRN (09:30)
[2017-02-18] MEDS: NAPROXEN 250 MG TAB PO SCH ×2 (09:55→20:03)
[2017-02-18] MEDS ORDERED: ONDANSETRON 4 MG TAB (S0181) PO PRN (15:45)
[2017-02-18 16:00] VITALS: BP 130/71
[2017-02-18] MEDS ORDERED: PANTOPRAZOLE 40MG TAB (PROTONIX) PO SCH (21:00)
[2017-02-19] VITALS: BP 121/68
--- NOTE | 2017-02-19 01:24 | IPNPDOC ---
Text Note Date of Service The patient was seen on 02/19/17. NOTE [facility] called and notified us that a bed was available. We went and discussed the options with the patient, indicating that the transfer would be advantageous such that he may be able to receive an evaluation by a financial cost analyst while inpatient. He stated that he had been feeling significantly better, and does not wish to be transferred to [facility] at this time. He prefers to attempt to follow-up with rheumatology as an outpatient early next week for further evaluation. The transfer was therefore canceled, and the patient did sign a form indicating refusal of transfer at this time, and he will remain under our care at [facility] until such time he is deemed stable for discharge by his attending physician. PAMELA AYALA DO Feb 19, 2017 01:24
[2017-02-19 06:20] LABS: MEAN CORPUSCULAR HEMOGLOBIN 30.9 pg (27.0-33.0); MEAN CORPUSCULAR HGB CONC 34.2 g/dl (32.0-36.5); MEAN CORPUSCULAR VOLUME 90.4 fl (80.0-96.0); RED CELL DISTRIBUTION WIDTH 12.5 % (11.5-14.5); WHITE BLOOD COUNT 7.6 K/mm3 (4.0-10.0)
[2017-02-19 06:39] LABS: ANION GAP 6 MEQ/L (8-16); BLOOD UREA NITROGEN 7 MG/DL (7-18); CALCIUM LEVEL 8.2 MG/DL (8.5-10.1); CARBON DIOXIDE LEVEL 27 MEQ/L (21-32); CHLORIDE LEVEL 107 MEQ/L (98-107); CREATININE FOR GFR 0.76 MG/DL (0.70-1.30); GLOMERULAR FILTRATION RATE > 60.0 (>60); GLUCOSE, FASTING 106 MG/DL (70-105); POTASSIUM SERUM 3.6 MEQ/L (3.5-5.1); SODIUM LEVEL 140 MEQ/L (136-145)
[2017-02-19 08:00] VITALS: BP 126/71
[2017-02-19] MEDS: NAPROXEN 250 MG TAB PO SCH (08:43)
[2017-02-19] MEDS ORDERED: predniSONE 20 MG TAB PO SCH (09:00)
[2017-02-19] MEDS ORDERED: ONDA4TAB5 PO (09:28)
[2017-02-19] MEDS ORDERED: PRED20TA PO (09:28)
[2017-02-19] MEDS ORDERED: PANT40TA2 PO (09:28)
[2017-02-19] MEDS ORDERED: NAPR250T45 PO (09:28)
--- NOTE | 2017-02-20 15:00 | DSES ---
DATE OF ADMISSION: 02/13/2017 DATE OF DISCHARGE: 02/19/2017 PRIMARY CARE PROVIDER: Nicanor Welsh MD DISCHARGE DIAGNOSES: Vasculitis, etiology not yet determined. History of peptic ulcer disease. Attention deficit hyperactivity disorder (ADHD). DISCHARGE MEDICATIONS: - prednisone 40 mg by mouth daily - naproxen 500 mg by mouth twice a day - pantoprazole 40 mg daily - odansetron 4 mg by mouth every 6 hours as needed for nausea - acetaminophen 500 mg as needed - Adderall one capsule by mouth twice a day HOSPITAL COURSE: Patient presented originally to the emergency room on February 07, 2017 with multiple joint pains, mostly on the right, swelling and a purpuric rash. The patient was originally diagnosed as Henoch's purpura and discharged from the emergency room to followup with his primary care provider. The patient did see his followup primary care provider, some lab work was done; however, the patient continued to feel bad, started having abdominal pain and fever and could not keep any food down by mouth so he came to the emergency room. The patient was admitted to the hospital on February 13, 2017 for purpuric rash and polyarthropathy. The patient was diagnosed with possible vasculitis and was placed for transfer to [facility] for further management. However, no bed was available in [facility]. The patient continued to be on the waiting list. While here in our hospital, the patient had a skin biopsy done. Also, serological workup was sent and then the patient was started on methylprednisolone then switched over to by mouth prednisone. The patient started feeling significantly better with resolution of his abdominal pain and was able to tolerate food by mouth. The patient's rash also started improving and the patient's joint pain resolved. Ultimately, [facility] ad a bed on February 18, 2017, but by that time the patient was significantly feeling better so refused his transfer. Subsequently, the patient was discharged from our hospital to home on February 19, 2017. On the day of discharge, the patient was comfortable. His vitals were stable and he was functioning at his baseline. PHYSICAL EXAMINATION: VITAL SIGNS: Temperature 99.1, pulse 72, respiratory rate 18, blood pressure 126/71, pulse oximetry 100% in room air. GENERAL: Patient awake, alert and oriented times three lying down in bed in no acute distress. HEENT: Normocephalic, atraumatic. Moist mucous membranes. Anicteric eyes. CHEST: Clear to auscultation. CARDIOVASCULAR: S1 and S2 regular, no rub, murmur or gallop. ABDOMEN: Soft, nontender. Bowel sounds present. EXTREMITIES: There is a purpuric rash extending in both the lower extremities involving the buttocks. There is also purpuric rash on both the upper extremities, mostly around the elbow. LABORATORY DATA: Gastrointestinal (GI) panel negative. Blood cultures negative. WBC 7.6, hemoglobin 11.1, platelets 239. Peripheral smear was normal. Sodium 140, potassium 3.6, chloride 107, bicarb 27, BUN 7, creatinine 0.76, glucose 106, calcium 8.2, CRP 1.09. Coagulation profile normal. IgA total 226, IgA subclass 2 was 26, IgA subclass 1 was 206, all within normal limits. Serum cryoglobulins negative. Double stranded DNA negative. Anti smooth muscle antibody negative. KEL screen negative. Anti CCP within normal range, c-ANCA and p-ANCA negative, C3 121, C4 22, within normal limits. Complement CH50 60 results are normal. Hepatitis C, hepatitis B surface antigen, hepatitis B core IgM antibody negative. HIV antibody negative. Lyme disease IgG and IgM negative. Chlamydia and gonorrhea negative. CT abdomen and pelvis there was mild dilatation of the duodenum and one or two loops of proximal jejunum with mural thickening. No evidence of significant obstruction or obstructive lesion seen. Multiple normal sized small bowel mesenteric lymph nodes. Bilateral L5 spondylolysis without spondylolisthesis. DISPOSITION: Patient is discharged home in stable condition. DISCHARGE INSTRUCTIONS: Patient followup with primary care provider within one week. Patient will require referral to rheumatology for further evaluation for his vasculitis. The patient's skin biopsy is still pending. Regular diet. Activity as tolerated.
== END 2017-02-19 10:13 | disposition home or self-care (01) | DRG 346 ==
LOC: M ED 08:35 → M ED INP 19:11 → M PED 20:30 → OBSVTOIN 02-16 15:19
PROVIDERS: ADMIT Internal Medicine; ATTEND Internal Medicine Nephrology
DX: D69.0 Allergic purpura (principal); K27.9 Peptic ulcer, site unspecified, unspecified as acute or chronic, without hemorrhage or perforation; F90.9 Attention-deficit hyperactivity disorder, unspecified type; Z79.899 Other long term (current) drug therapy; F17.200 Nicotine dependence, unspecified, uncomplicated

== ENCOUNTER → 2017-08-31 | Outpatient (REF) | payer BC ==
[2017-08-31 12:28] LABS: INFLUENZA A AMPLIFICATION NEGATIVE (NEGATIVE); INFLUENZA B AMPLIFICATION NEGATIVE (NEGATIVE)
== END ==
LOC: M LAB REF 11:37
DX: J11.1 Influenza due to unidentified influenza virus with other respiratory manifestations (principal)

== ENCOUNTER 2018-04-30 07:59 | Emergency (ER) | payer BC ==
[2018-04-30] MEDS: NS 1,000 ML IV (09:10)
[2018-04-30 09:13] LABS: BASO % 0.3 % (0.0-1.0); EOS # 0.1 10^3/uL (0.0-0.50); EOS % 0.6 % (0.0-3.0); HEMATOCRIT 43.4 % (42.0-52.0); HEMOGLOBIN 14.7 g/dl (13.5-17.5); IMMATURE GRANULOCYTE % 0.3 % (0-3.0); LYMPH % 8.2 % (24.0-44.0); MEAN CORPUSCULAR HEMOGLOBIN 30.8 pg (27.0-33.0); MEAN CORPUSCULAR HGB CONC 33.9 g/dl (32.0-36.5); MONO # 0.8 10^3/uL (0.0-0.8); MONO % 6.7 % (0.0-5.0); NEUTROPHILS # 9.7 10^3/uL (1.8-7.7); NEUTROPHILS % 83.9 % (36.0-66.0); PLATELET COUNT, AUTOMATED 260 10^3/uL (150-450); RED BLOOD COUNT 4.77 10^6/uL (4.30-6.10); RED CELL DISTRIBUTION WIDTH 11.9 % (11.5-14.5); WHITE BLOOD COUNT 11.6 10^3/uL (4.0-10.0)
[2018-04-30] MEDS: KETOROLAC 30 MG/ML VIAL (J1885) IV (09:13)
[2018-04-30 09:20] LABS: KETONE, URINE AUTO RFX 1+ mg/dL (NEGATIVE); LEUKOCYTE ESTERASE UR AUTO RFX NEGATIVE (NEGATIVE); MUCUS, URINE RFX SMALL (NEGATIVE); NITRITE, URINE AUTO RFX NEGATIVE (NEGATIVE); RBC, URINE AUTO RFX 2 /HPF (0-3); SPECIFIC GRAVITY UR AUTO RFX 1.023 (1.002-1.035); SQUAM EPITHELIAL CELL UR AURFX 0 /HPF (0-6); WBC, URINE AUTO RFX 0 /HPF (0-3)
[2018-04-30 09:25] LABS: ALBUMIN 3.9 GM/DL (3.2-5.2); ALBUMIN/GLOBULIN RATIO 0.93 (1.00-1.93); ALKALINE PHOSPHATASE 69 U/L (45-117); ALT/SGPT 27 U/L (12-78); AMYLASE 29 U/L (25-115); ANION GAP 8 MEQ/L (8-16); AST/SGOT 20 U/L (7-37); BILIRUBIN,DIRECT 0.3 MG/DL (0.0-0.2); BILIRUBIN,TOTAL 0.8 MG/DL (0.2-1.0); BLOOD UREA NITROGEN 8 MG/DL (7-18); CALCIUM LEVEL 8.9 MG/DL (8.5-10.1); CARBON DIOXIDE LEVEL 27 MEQ/L (21-32); CHLORIDE LEVEL 104 MEQ/L (98-107); CREATININE FOR GFR 0.96 MG/DL (0.70-1.30); GLOMERULAR FILTRATION RATE > 60.0 (>60); GLUCOSE, FASTING 101 MG/DL (70-100); LIPASE 70 U/L (73-393); POTASSIUM SERUM 4.4 MEQ/L (3.5-5.1); SODIUM LEVEL 139 MEQ/L (136-145); TOTAL PROTEIN 8.1 GM/DL (6.4-8.2)
[2018-04-30] MEDS ORDERED: ISOVUE-370 76% 100ML VIAL (Q9967) As Ordered (09:45)
== END 2018-04-30 10:48 | disposition home or self-care (01) ==
LOC: M ED 07:59
DX: A09 Infectious gastroenteritis and colitis, unspecified (principal); E86.0 Dehydration
CPT/HCPCS: Q9967